=== PATIENT | male | born 1960 | race Caucasian/White ===

== ENCOUNTER → 2018-08-24 | Outpatient (REF) | payer OTHER ==
[2018-08-24 12:06] LABS: PROTHROMBIN TIME 13.3 SECONDS (12.1-14.4)
[2018-08-24 12:07] LABS: PARTIAL THROMBOPLASTIN TIME 32.7 SECONDS (25.4-37.6)
[2018-08-24 12:13] LABS: COLLAGEN EPINEPHRINE 137 SECONDS (74-162)
== END ==
LOC: M LABDRAW1 11:07
PROVIDERS: ATTEND Physical Medicine & Rehabilitation
DX: Z01.818 Encounter for other preprocedural examination (principal)

== ENCOUNTER 2019-03-16 07:50 | Day surgery (SDC) | payer OTHER ==
[~2019-03-16] VITALS: Ht 182.9 cm; Wt 107.5 kg
[~2019-03-16 07:50] MED LIST: CIPRODEX OTIC SUSP 7.5ML As Ordered ONE; LIDOCAINE 1% MDV 20ML VIAL SQ PRN
[2019-03-16] MEDS ORDERED: LR 1,000 ML IV ONE (08:45)
[2019-03-16] MEDS ORDERED: PROPOFOL 200 MG/20 ML VIAL As Ordered ONE (09:34)
[2019-03-16] MEDS ORDERED: LIDOCAINE 2% INJ 100 MG/5 ML SDV (FOR ANES.) As Ordered ONE (09:34)
[2019-03-16] MEDS ORDERED: ONDANSETRON 4MG/2ML VIAL (J2405) As Ordered ONE (09:34)
[2019-03-16] MEDS ORDERED: METOCLOPRAMIDE INJ 10MG/2ML VIAL (J2765) As Ordered ONE (09:34)
[2019-03-16] MEDS ORDERED: dexameTHASONE 4 MG/ML 1ML VIAL (J1100) As Ordered ONE (09:34)
[2019-03-16] MEDS ORDERED: fentaNYL 100 MCG/2 ML INJECTION (J3010) As Ordered ONE (09:34)
[2019-03-16] MEDS ORDERED: MIDAZOLAM INJ 2 MG/2 ML VIAL (J2250) As Ordered ONE (09:34)
[2019-03-16] MEDS ORDERED: LR 1,000 ML IV SCH ×2 (10:15→10:30)
[2019-03-16] MEDS ORDERED: ONDANSETRON 4MG/2ML VIAL (J2405) IV PRN (10:15)
[2019-03-16 10:47] VITALS: BP 138/80
[2019-03-16] MEDS ORDERED: ACETAMINOPHEN 1000MG 100ML IV BTL (OFIRMEV) (J0131 PER 10MG) As Ordered ONE (11:06)
== END 2019-03-16 12:15 | disposition home or self-care (01) ==
LOC: M SDC 07:50
PROVIDERS: ATTEND Otolaryngology
DX: H65.192 Other acute nonsuppurative otitis media, left ear (principal)
CPT/HCPCS: 69436; J0131; J1100; J2250; J2405; J2765; J3010

== ENCOUNTER → 2021-08-25 | Outpatient (CLI) | payer OTHER | LOC: M RAD 13:35 | PROVIDERS: ATTEND Otolaryngology | DX: H81.02 Meniere's disease, left ear (principal) ==

== ENCOUNTER → 2022-04-14 | Outpatient (CLI) | payer OTHER | LOC: M RAD 12:50 | PROVIDERS: ATTEND Physician Assistant Medical | DX: J32.8 Other chronic sinusitis (principal) ==